=== PATIENT | male | born 1975 | race Caucasian/White ===

== ENCOUNTER 2016-11-18 13:48 | Emergency (ER) | payer OTHER ==
[2016-11-18] MEDS ORDERED: ACETAMINOPHEN TAB 500 MG TAB PO STA (14:56)
[2016-11-18] MEDS ORDERED: SODIUM CHLORIDE 0.9% 1,000 ML IV ONE (14:56)
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
[2016-11-18 15:28] LABS: Basophils % (A) 1 %; CHCM 37.1; Eosinophils # (A) 0.1 k/uL (0-0.7); Eosinophils % (A) 2 %; HCT 40.1 % (39.0-53.0); HDW 2.92; HGB 14.6 gm/dL (13.0-17.5); Luc # (Auto) 0.11; Luc % (Auto) 3; Lymphocytes % (A) 26 %; MCH 31.4 pg (25.0-35.0); MCHC 36.3 g/dL (31.0-37.0); MCV 86.5 fL (80.0-100.0); Mean Platelet Volume 9.1; Monocytes # (A) 0.3 k/uL (0-1.0); Monocytes % (A) 8 %; Neutrophils # (A) 2.3 k/uL (1.3-7.7); Neutrophils % (A) 61 %; RBC 4.64 m/uL (4.30-5.90); RDW 12.5 % (11.5-15.5); WBC 3.9 k/uL (3.8-10.6); WBC (Perox) 3.85
[2016-11-18 15:37] LABS: ALT 29 U/L (21-72); AST 25 U/L (17-59); Alkaline Phosphatase 65 U/L (38-126); Anion Gap 9 mmol/L; Blood Urea Nitrogen 8 mg/dL (9-20); Carbon Dioxide 25 mmol/L (22-30); Chloride 106 mmol/L (98-107); Glucose 99 mg/dL (74-99); Non-African American GFR(MDRD) >60 (>60 ml/min/1.73 sqM); Potassium 4.1 mmol/L (3.5-5.1); Sodium 140 mmol/L (137-145); Total Bilirubin 0.5 mg/dL (0.2-1.3); Total Protein 6.3 g/dL (6.3-8.2)
--- NOTE | 2016-11-18 16:10 | XR ---
EXAMINATION TYPE: XR chest 2V DATE OF EXAM: 11/18/2016 COMPARISON: NONE INDICATION: Productive cough TECHNIQUE: Frontal and lateral views of the chest are obtained. FINDINGS: The heart size is normal. The pulmonary vasculature is normal. The lungs are clear. IMPRESSION: 1. No acute pulmonary process.
[2016-11-18 16:17] LABS: Appearance,Urine Clear (Clear); Bilirubin,Urine Negative (Negative); Glucose,Urine (UA) Negative (Negative); Ketones,Urine Negative (Negative); Leukocyte Esterase,Urine Negative (Negative); Nitrite,Urine Negative (Negative); Protein,Urine Negative (Negative); Specific Gravity,Urine 1.002 (1.001-1.035); UA Billing (MACRO vs. MICRO) CHEM; Urobilinogen,Urine <2.0 mg/dL (<2.0)
[2016-11-18] MEDS ORDERED: HYDROmorphone 1 MG/ML 1 ML SYRINGE IVP STA (17:42)
[2016-11-18 18:19] VITALS: RESP 16
--- NOTE | 2016-11-18 19:01 | MR ---
EXAMINATION TYPE: MR lumbar spine wo/w con DATE OF EXAM: 11/18/2016 COMPARISON: NONE HISTORY: Low back pain, leg numbness, loss of bladder control TECHNIQUE: Multiplanar, multisequence images of the lumbar spine were acquired utilizing [address] gadolinium contrast. Lumbar vertebra have normal alignment. There is a small posterior L4-5 and L5-S1 disc bulging without significant compromise of the thecal sac. The lumbar nerve roots appear normal. The neural foramina are widely patent. There is no compression fracture. There is no lumbar paraspinal mass. The visualiz ed sacroiliac joints appear normal. The contrast images show no pathologic enhancement. There is poss ible L5 laminectomy on the left side. I see no focal bone destruction. Disc spaces are fairly well-ma intained for age. IMPRESSION: There are minimal posterior disc bulges at L4-5 and L5-S1 without compromise of the spinal canal. No fracture.
[2016-11-18 20:12] VITALS: BP 104/60; PULSE 70; TEMP 98
== END 2016-11-18 20:00 | disposition home or self-care (01) ==
LOC: EC 13:48
DX: M51.17 Intervertebral disc disorders with radiculopathy, lumbosacral region (principal); J06.9 Acute upper respiratory infection, unspecified; F17.200 Nicotine dependence, unspecified, uncomplicated; Z88.5 Allergy status to narcotic agent
CPT/HCPCS: 99284; 96374; 96361 ×3; 51798; 36415; 80053; 83605; 85025; 81003; 87040; 87086; 71020; 72158; J1170; A9581